=== PATIENT | female | born 1975 ===

== ENCOUNTER 2023-02-09 09:15 | Inpatient (IN) | payer OTHER ==
[~2023-02-09] VITALS: Ht 152.4 cm; Wt 62.1 kg
[2023-02-09] MEDS ORDERED: IRON325 MG PO (12:01)
[2023-02-14] MEDS ORDERED: FOLIC ACID1 MG (10:47)
[2023-02-14] MEDS ORDERED: OPTIMAL D31250 MCG (10:47)
[2023-02-14] MEDS ORDERED: MEGESTROL ACETA40 MG (10:47)
[2023-02-14] MEDS ORDERED: VALTREX1000 MG (10:47)
[2023-02-15] MEDS ORDERED: GABAPENTIN300 MG PO (07:02)
[2023-02-15] MEDS ORDERED: POLY119PG PO (07:02)
[2023-02-15] MEDS ORDERED: IBUPROFEN800 MG PO (07:02)
[2023-02-15] MEDS ORDERED: SIMETHICONE125 M1 PO (07:03)
[2023-02-15] MEDS ORDERED: CEFADROXIL500 MG PO (07:03)
== END 2023-02-15 11:25 | disposition home or self-care (01) | DRG 743 ==
LOC: OB/GYN 02-13 05:37 → O/R 02-13 05:37 → SURH 02-13 09:15 → OB/GYN 02-13 10:20 → SURH 02-13 10:30 → OB/GYN 02-14 15:57
PROVIDERS: ADMIT Obstetrics & Gynecology; ATTEND Obstetrics & Gynecology
PROC: 0UT90ZZ Resection of Uterus, Open Approach (ICD-10-PCS; principal; 2023-02-13 10:30)
DX: D25.1 Intramural leiomyoma of uterus (principal); D25.2 Subserosal leiomyoma of uterus; D25.0 Submucous leiomyoma of uterus; Z20.822 Contact with and (suspected) exposure to COVID-19